=== PATIENT | male | born 1955 | race African-American/Black ===

== ENCOUNTER 2019-06-04 07:59 | Inpatient (IN) | payer MEDICAID ==
[~2019-06-04] VITALS: Ht 175.3 cm; Wt 85.7 kg
[2019-06-04 09:07] LABS: BASOPHILS % 0.8 % (0.0-2.0); EOSINOPHILS % 2.4 % (0.0-5.0); HEMATOCRIT. 45.1 % (42.0-52.0); HEMOGLOBIN. 15.4 g/dL (14.0-18.0); MEAN CORPUSCULAR HEMOGLOBIN 32.9 pg (28.0-32.0); MEAN CORPUSCULAR VOLUME 96.7 fL (80.0-94.0); MEAN PLATELET VOLUME 9.4 fl (7.4-10.4); MONOCYTES % 13.1 % (2.0-8.0); NEUTROPHILS % 59.7 % (40.0-76.0); PLATELET 184 x1000/uL (130-400); RED BLOOD CELL COUNT 4.67 mill/uL (4.7-6.1); RED CELL DISTRIBUTION WIDTH 13.9 % (11.6-14.6)
[2019-06-04] MEDS ORDERED: MORPHINE SULFATE 4 MG/ML CPJ (NOT FOR IM USE) IV STA (09:13)
[2019-06-04] MEDS ORDERED: ONDANSETRON HCL 4MG/2ML INJ IV STA (09:13)
[2019-06-04 09:15] LABS: CHLORIDE 109 mEq/L (98-107)
[2019-06-04] MEDS ORDERED: NITROGLYCERIN OINT 1GM/INCH UDPKT TD ONE (09:15)
[2019-06-04] MEDS ORDERED: ASPIRIN 81MG TABLET PO ONE (09:15)
[2019-06-04 09:21] LABS: ETHANOL BLOOD 117 mg/dL
[2019-06-04] MEDS ORDERED: DOCUSATE SODIUM 100MG CAPSULE PO PRN (10:15)
[2019-06-04] MEDS ORDERED: HYDROCODONE/ACETAMINOPHEN 5/325MG TABLET PO PRN (10:15)
[2019-06-04] MEDS ORDERED: CLONIDINE 0.1MG TABLET PO PRN (10:15)
[2019-06-04] MEDS ORDERED: DIPHENHYDRAMINE 50MG/ML VIAL IV PRN (10:15)
[2019-06-04] MEDS ORDERED: ONDANSETRON HCL 4MG/2ML INJ IV PRN (10:15)
[2019-06-04] MEDS ORDERED: ACETAMINOPHEN 325MG TABLET PO PRN (10:15)
[2019-06-04] MEDS ORDERED: GUAIFENESIN 200MG/10ML SUGAR FREE UDC PO PRN (10:15)
[2019-06-04] MEDS ORDERED: MAGNESIUM/ALUMINUM HYDROXIDE/SIMETHICONE 30ML UDC PO PRN (10:15)
[2019-06-04] MEDS ORDERED: IPRATROPIUM/ALBUTEROL 0.5-3(2.5)MG/3ML NEB HHN PRN (10:15)
[2019-06-04 10:36] LABS: PHOSPHORUS 3.6 mg/dL (2.5-4.9)
[2019-06-04 14:00] VITALS: BP 127/85
[2019-06-04 14:41] VITALS: BP 127/85
[2019-06-04] MEDS ORDERED: METO-396 MT (14:46)
[2019-06-04 16:00] VITALS: BP 128/72
[2019-06-04 20:07] VITALS: BP 125/79
[2019-06-05] VITALS: BP 195/118
[2019-06-05 04:00] VITALS: BP 131/86
[2019-06-05 07:05] LABS: MEAN CORPUSCULAR HEMOGLOBIN 32.8 pg (28.0-32.0); MEAN PLATELET VOLUME 9.7 fl (7.4-10.4); PLATELET 180 x1000/uL (130-400); RED BLOOD CELL COUNT 4.58 mill/uL (4.7-6.1)
[2019-06-05 07:06] LABS: CHLORIDE 107 mEq/L (98-107)
[2019-06-05 07:14] LABS: LDL CHOLESTEROL 95 mg/dL (5-100)
[2019-06-05 07:16] LABS: HDL CHOLESTEROL 65 mg/dL (40-59)
[2019-06-05 08:00] VITALS: BP 155/83
[2019-06-05 09:50] LABS: ATYPICAL LYMPHOCYTES 1; PLATELET ESTIMATE NORMAL
[2019-06-05 12:00] VITALS: BP 123/75
[2019-06-05] MEDS ORDERED: DILTIAZEM HCL 30MG TABLET PO SCH (14:00)
[2019-06-05 16:00] VITALS: BP 115/58
[2019-06-05] MEDS ORDERED: ATOR10TA PO (18:40)
[2019-06-05] MEDS ORDERED: DILT30TA38 PO (18:40)
[2019-06-05 19:09] VITALS: BP 123/59
[2019-06-05] MEDS ORDERED: ATORVASTATIN CALCIUM 10MG TABLET PO SCH (21:00)
== END 2019-06-05 19:40 | disposition home or self-care (01) | DRG 203 ==
LOC: ER 07:59 → 8WST 09:40 → EDBEDREQ 09:43 → ENRESERV 12:15 → 7WST 06-05 07:30
PROVIDERS: ADMIT Internal Medicine; ATTEND Internal Medicine
DX: R07.89 Other chest pain (principal); I11.0 Hypertensive heart disease with heart failure; I50.9 Heart failure, unspecified; I35.1 Nonrheumatic aortic (valve) insufficiency; T78.3XXA Angioneurotic edema, initial encounter; E78.5 Hyperlipidemia, unspecified; F17.200 Nicotine dependence, unspecified, uncomplicated; J44.9 Chronic obstructive pulmonary disease, unspecified; Z91.14 Patient's other noncompliance with medication regimen; Z91.19 Patient's noncompliance with other medical treatment and regimen; Y93.89 Activity, other specified; Y92.89 Other specified places as the place of occurrence of the external cause; Y99.8 Other external cause status
CPT/HCPCS: 36415; 71045; 80061; 80320; 83735; 83880; 84100; 84443; 84484; 93005; 93306; 93970; 96374; 99285; J2270; J2405; G0480